=== PATIENT | male | born 1970 | race Asian ===

== ENCOUNTER → 2018-09-12 | Outpatient (CLI) | payer OTHER ==
[~2018-09-12] MED LIST: CETI10CA PO; IBUP200C8 PO; SIMV20TA3 PO
== END | disposition home or self-care (01) ==
LOC: CFH 10:00
PROVIDERS: ATTEND Family Medicine
DX: M47.896 Other spondylosis, lumbar region (principal); M48.061 Spinal stenosis, lumbar region without neurogenic claudication
CPT/HCPCS: 72148